=== PATIENT | male | born 1995 | race Caucasian/White ===

== ENCOUNTER 2017-06-21 19:37 | Emergency (ER) | payer SELFPAY ==
[~2017-06-21] VITALS: Ht 170.2 cm; Wt 106.0 kg
[2017-06-21 19:41] VITALS: Ht 170.2 cm; Wt 106.0 kg
[2017-06-21 21:28] LABS: URINE BLOOD (Dip) POC Trace-intact (NEGATIVE)
[2017-06-21 21:41] LABS: BASOPHIL # 0.1 10^3/ul (0.0-0.1); BASOPHILS % 0.8 % (0.0-2.0); EOSINOPHILS # 0.3 10^3/ul (0.0-0.5); EOSINOPHILS % 3.3 % (0.0-7.0); HEMATOCRIT 42.6 % (42.0-52.0); HEMOGLOBIN 14.5 g/dl (14.0-18.0); MEAN CORPUSCULAR VOLUME 82.4 fl (82.0-101.0); MEAN PLATELET VOLUME 9.9 fl (7.4-10.4); MONOCYTE # 0.6 10^3/ul (0.3-0.9); MONOCYTES % 7.4 % (0.0-11.0); NEUTROPHIL # 4.4 10^3/ul (1.6-7.5); NEUTROPHILS % 52.3 % (39.0-77.0); PLATELET COUNT 261 10^3/UL (140-415); RED BLOOD COUNT 5.17 10^6/ul (4.70-6.10); RED CELL DISTRIBUTION WIDTH 12.8 % (11.5-14.5); WHITE BLOOD COUNT 8.4 10^3/ul (4.8-10.8)
[2017-06-21 22:02] LABS: CALCIUM 9.1 mg/dl (8.4-10.2); CREATININE 1.03 mg/dl (0.61-1.24); POTASSIUM 4.1 mmol/L (3.5-5.1)
--- NOTE | 2017-06-21 22:30 | ERD ---
ER Documentation Chief Complaint Chief Complaint DIZZINESS, WOLF W/ SOB WITH FALL AT HOME WITH RT ANKLE PAIN, NO DEFORMITY HPI Otherwise healthy 21-year-old male presenting with a chief complaint of his syncope today. Patient was at work walking when syncope happened. Patient has no medical conditions and describes no other associated manifestations. No other symptoms in the past 2 weeks. Similar symptoms 2 months ago while patient was sitting with out cause/diagnosis. Patient denies headache, dizziness as described in nursing notes. No fever or chills. No sick contacts. Denies alcohol or drug use. Patient has no other complaints and describes no other associated manifestations. ROS All systems reviewed and are negative except as per history of present illness. Allergies Allergies: Coded Allergies: No Known Allergy (Unverified , 08/21/14) PMhx/Soc Medical and Surgical Hx: pt denies Medical Hx, pt denies Surgical Hx Hx Alcohol Use: Yes Hx Substance Use: No Hx Tobacco Use: No Smoking Status: Never smoker Physical Exam Vitals Vital Signs Date Time Temp Pulse Resp B/P Pulse Ox O2 Delivery O2 Flow Rate FiO2 06/21/17 19:41 97.6 86 20 153/73 98 Physical Exam Const: [] Head: Atraumatic Eyes: Normal Conjunctiva ENT: Normal External Ears, Nose and Mouth. Neck: Full range of motion..~ No meningismus. Resp: Clear to auscultation bilaterally Cardio: Regular rate and rhythm, no murmurs Abd: Soft, non tender, non distended. Normal bowel sounds Skin: No petechiae or rashes Back: No midline or flank tenderness Ext: No cyanosis, or edema Neur: Awake and alert Psych: Normal Mood and Affect Result Diagram: 06/21/17212406/21/172124 Results 24 hrs Laboratory Tests Test 06/21/17 21:25 06/21/17 21:26 White Blood Count 8.410^3/ul Red Blood Count 5.1710^6/ul Hemoglobin 14.5g/dl Hematocrit 42.6% Mean Corpuscular Volume 82.4fl Mean Corpuscular Hemoglobin 28.0pg Mean Corpuscular Hemoglobin Concent 34.0g/dl Red Cell Distribution Width 12.8% Platelet Count 28180^3/UL Mean Platelet Volume 9.9fl Neutrophils % 52.3% Lymphocytes % 36.0% Monocytes % 7.4% Eosinophils % 3.3% Basophils % 0.8% Nucleated Red Blood Cells % 0.0/100WBC Neutrophils # 4.410^3/ul Lymphocytes # 3.010^3/ul Monocytes # 0.610^3/ul Eosinophils # 0.310^3/ul Basophils # 0.110^3/ul Nucleated Red Blood Cells # 0.010^3/ul Sodium Level 141mmol/L Potassium Level 4.1mmol/L Chloride Level 105mmol/L Carbon Dioxide Level 23mmol/L Anion Gap 17 Blood Urea Nitrogen 17mg/dl Creatinine 1.03mg/dl Glucose Level 105mg/dl Calcium Level 9.1mg/dl Bedside Urine pH (LAB) 6.0 Bedside Urine Protein (LAB) Negative Bedside Urine Glucose (UA) Negative Bedside Urine Ketones (LAB) Negative Bedside Urine Blood Trace-intact Bedside Urine Nitrite (LAB) Negative Bedside Urine Leukocyte Esterase (L Negative Procedures/MDM Patient presents with a chief complaint of syncope that he sustained at work while walking. Denies strenuous activities. Denies dizziness or headache as described in nursing notes. Has not taken any medications. Denies alcohol or drug abuse. No medications. EKG was done read by me as normal sinus rhythm, normal axis, no ST elevation depression, no T-wave abnormalities, and good baseline. CBC and CMP and urinalysis were obtained. Results were largely unremarkable. Trace hematuria. Most likely diagnosis is syncope of unknown etiology. I have no suspicion for intracranial pathology, neurovascular compromise, hypovolemia/anemia. I cannot exclude chronic pathologies thus patient has been told to follow-up with PCP in the next 2-3 days. I have spoke with the patient regarding their condition and future management. They have verbally responded that they understand their status and treatment plan. The patients vitals are stable, and their current condition is appropriate for discharge. The patient will be given discharge instructions with return precautions. Departure Diagnosis: Primary Impression: Syncope Syncope type: unspecified Qualified Code: R55 - Syncope, unspecified syncope type Condition: Stable Patient Instructions: Syncope, Unk Cause Additional Instructions: Follow up with your PCP within the next 1-3 days for a more thorough evaluation and a possible referral to a specialist. Return the the emergency department immediately if symptoms worsen or change. If you have any questions regarding medications, ask your pharmacist or us before you leave. If any adverse reactions occur while taking your medications, discontinue the treatment and return to the emergency department immediately. Take your medications as directed, and complete the entire course of treatment. SIMA METZ PA-C Jun 21, 2017 22:30
[2017-06-21 22:42] VITALS: BP 134/62; PULSE 64; RESP 16; TEMP 98.4
== END 2017-06-21 22:44 | disposition home or self-care (01) ==
LOC: FTE 19:37
DX: R55 Syncope and collapse (principal)
CPT/HCPCS: 36415; 80048; 81003; 85025; 93005

== ENCOUNTER 2017-11-26 19:02 | Emergency (ER) | END 2017-11-27 01:11 | disposition home or self-care (01) ==